=== PATIENT | male | born 1985 | race Caucasian/White ===

== ENCOUNTER 2020-03-13 21:35 | Emergency (ER) | payer BC ==
[2020-03-13] MEDS ORDERED: Diphtheria,Pertussis(Acell),Tetanus Vaccine 0.5 ML Syringe IM ONE (22:43)
--- NOTE | 2020-03-13 23:05 | EDM.PDOC ---
ED HPI GENERAL MEDICAL PROBLEM - General Chief Complaint: Laceration Stated Complaint: CUT ON FINGER Time Seen by Provider: 03/13/20 21:35 Source of Information: Reports: Patient History Limitations: Reports: No Limitations - History of Present Illness INITIAL COMMENTS - FREE TEXT/NARRATIVE: 34-year-old male with a past medical history of hypertension presenting with a finger injury. Approximately 30 minutes prior to arrival, the patient was cutting plastic bottles with a razor blade when he accidentally partially avulsed the fingertip of his left index finger. Tetanus immunization status is uncertain. No other injuries or complaints. Left index finger Pain Score (Numeric/FACES): 1 - Related Data Allergies Allergy/AdvReac Type Severity Reaction Status Date / Time No Known Allergies Allergy Verified 03/13/20 22:10 Home Meds: Home Meds Losartan/Hydrochlorothiazide [Losartan-HCTZ 50-12.5 MG] 1 tab PO DAILY 03/13/20 [History] Past Medical History Cardiovascular History: Reports: Hypertension - Infectious Disease History Infectious Disease History: Reports: Chicken Pox Social & Family History - Family History Family Medical History: Noncontributory - Tobacco Use Smoking Status *Q: Never Smoker - Caffeine Use Caffeine Use: Reports: Coffee, Energy Drinks, Soda, Tea - Recreational Drug Use Recreational Drug Use: No ED ROS GENERAL - Review of Systems Review Of Systems: See Below Constitutional: Denies: Fever Skin: Reports: Wound Neurological: Denies: Numbness, Paresthesia ED EXAM, SKIN/RASH Exam: See Below Text/Narrative:: Vital signs reviewed. Nursing notes reviewed. Constitutional: Awake, alert, non-distressed Head: Normocephalic, atraumatic Cardiovascular: 2+ radial pulse, capillary refill less than 2 seconds Pulmonary: normal work of breathing, no accessory muscle use Musculoskeletal: No deformities. Partial avulsion of the tip of the left index finger with a very small amount of the fingernail avulsed as well, hemostatic, clean appearing. Integumentary: Appropriate color for ethnicity, warm, dry, no pallor or jaundice , no rash Neurologic: Alert, answering questions appropriately, normal speech, no facial droop, moving all extremities well Psychiatric: Appropriate mood and affect, normal thought process ED SKIN PROCEDURES - Laceration/Wound Repair Left Distal Digit - 2nd (Index) Appearance: Superficial Distal NVT: Neuro & Vascular Intact Anesthetic Type: Other (None) Skin Prep: Saline Exploration/Debridement/Repair: No Foreign Material Found Closed with: Steri-Strips Lac/Wound length In cm: 1 (3 Steri-Strips) Drain Placement: No Tetanus Status Addressed: Yes Complications: No Progress/Comments: Full avulsion of the pad of the left index finger. Avulsion flap is well approximated and bleeding is well controlled. Irrigated and then 3 Steri- Strips were applied with good approximation of the partially avulsed flap. Course - Vital Signs Text/Narrative:: 34-year-old male presenting with a partial avulsion of the finger tip of the left index finger. On arrival hemodynamically stable, afebrile, well- appearing. Wound was repaired as detailed in procedure documentation. Tolerated well. Stable to discharge home with outpatient primary care follow- up as needed. Strict ED return precautions provided. All questions answered prior to discharge. Last Recorded V/S: Last Vital Signs Temp 36.2 C 03/13/20 22:08 Pulse 77 03/13/20 22:08 Resp 16 03/13/20 22:08 BP 161/92 H 03/13/20 22:08 Pulse Ox 97 03/13/20 22:08 - Orders/Labs/Meds Orders: Active Orders 24 hr Category Date Time Status Steristrips, Apply [RC] ASDIRECTED Care 03/13/20 22:43 Active Vaccines to be Administered [RC] PER UNIT ROUTINE Care 03/13/20 22:43 Active Meds: Medications Discontinued Medications Generic Name Dose Route Start Last Admin Trade Name Freq PRN Reason Stop Dose Admin Diphtheria/Tetanus/Acell Pertussis 0.5 ml 03/13/20 22:43 03/13/20 22:49 Adacel IM 03/13/20 22:44 0.5 ml .ONCE ONE Administration Departure - Departure Time of Disposition: 23:04 Disposition: Home, Self-Care 01 Condition: Good Clinical Impression: Laceration of finger Qualifiers: Encounter type: initial encounter Finger: index finger Damage to nail status: with damage Foreign body presence: without foreign body Laterality: left Qualified Code(s): S61.311A - Laceration without foreign body of left index finger with damage to nail, initial encounter - Discharge Information *PRESCRIPTION DRUG MONITORING PROGRAM REVIEWED*: Not Applicable *COPY OF PRESCRIPTION DRUG MONITORING REPORT IN PATIENT MARK: Not Applicable Instructions: Sterile Tape Wound Care, Laceration Care, Adult Referrals: [facility] - [facility] Practice [Provider Group] - 1 Week (As needed with any concerns) Additional Instructions: The following information is given to patients seen in the emergency department who are being discharged to home. This information is to outline your options for follow-up care. We provide all patients seen in our emergency department with a follow-up referral. The need for follow-up, as well as the timing and circumstances, are variable depending upon the specifics of your emergency department visit. If you don't have a primary care physician on staff, we will provide you with a referral. We always advise you to contact your personal physician following an emergency department visit to inform them of the circumstance of the visit and for follow-up with them and/or the need for any referrals to a consulting specialist. The emergency department will also refer you to a specialist when appropriate. This referral assures that you have the opportunity for follow-up care with a specialist. All of these measure are taken in an effort to provide you with optimal care, which includes your follow-up. Under all circumstances we always encourage you to contact your private physician who remains a resource for coordinating your care. When calling for follow-up care, please make the office aware that this follow-up is from your recent emergency room visit. If for any reason you are refused follow-up, please contact the [facility] Emergency Department at and asked to speak to the emergency department charge nurse. Sepsis Event Note - Evaluation Sepsis Screening Result: No Definite Risk - Focused Exam Vital Signs: Vital Signs Temp Pulse Resp BP Pulse Ox 03/13/20 22:08 36.2 C 77 16 161/92 H 97 Date Exam was Performed: 03/13/20 Time Exam was Performed: 23:00 - My Orders Last 24 Hours: My Active Orders 03/13/20 22:43 Steristrips, Apply [RC] ASDIRECTED Vaccines to be Administered [RC] PER UNIT ROUTINE - Assessment/Plan Last 24 Hours: My Active Orders 03/13/20 22:43 Steristrips, Apply [RC] ASDIRECTED Vaccines to be Administered [RC] PER UNIT ROUTINE
== END 2020-03-13 23:16 | disposition home or self-care (01) ==
LOC: MW.ED 21:35
DX: S61.311A Laceration without foreign body of left index finger with damage to nail, initial encounter (principal); I10 Essential (primary) hypertension; Z79.899 Other long term (current) drug therapy; Z23 Encounter for immunization; W26.8XXA Contact with other sharp object(s), not elsewhere classified, initial encounter
CPT/HCPCS: 12001; 90471; 90715; 99282; 99282-25